=== PATIENT | female | born 1940 | race Caucasian/White ===

== ENCOUNTER 2016-12-26 09:40 | Outpatient (CLI) | payer MEDICARE ==
[~2016-12-26 09:40] MED LIST: KAPIDEX60 MG PO; MAXZIDE 50 MG-71 TAB PO; METOPROLOL SUCC50 M1 PO; POTASSIUM CHLO10 ME3 PO; PRAVACHOL 40MG40 MG PO; VITAMIN D2400 UNIT PO
[2016-12-26 10:10] LABS: GFR (ESTIMATED) 82 ML/MIN (59-)
[2016-12-26 10:50] VITALS: BP 123/56
[2016-12-26 11:05] VITALS: BP 122/70
== END 2016-12-26 11:05 | disposition home or self-care (01) ==
LOC: COP 09:40
PROVIDERS: Family Medicine
DX: M81.0 Age-related osteoporosis without current pathological fracture (principal)
CPT/HCPCS: J3489